=== PATIENT | female | born 1935 | race Caucasian/White ===

== ENCOUNTER 2017-07-21 08:22 | Day surgery (SDC) | payer MEDICARE ==
[~2017-07-21] VITALS: Ht 157.5 cm; Wt 72.6 kg
[~2017-07-21 08:22] MED LIST: ACET500 PO; ASCO500 PO; ASPI81EC PO; ATOR80 PO; CALCAVITDA PO; GLIM2 PO; HYDCHL25 PO; IBUPROFEN 200MG; LISINOPRIL PO; METF500C PO; METO50 PO; MULVITMIND PO; NAPR500 PO; PIOG45 PO
[2017-07-21] MEDS ORDERED: BUME1 (09:34)
[2017-07-21] MEDS ORDERED: [UNRECOGNIZED DRUG - OTHER] (09:35)
[2017-07-21] MEDS ORDERED: Excedrin Extra1 EACH (09:38)
[2017-07-21] MEDS ORDERED: LOPE2C (09:38)
[2017-07-21] MEDS ORDERED: METO50 PO (15:17)
[2017-07-21] MEDS ORDERED: Lisinopril2.5 MG PO (15:18)
[2017-07-21] MEDS ORDERED: BUME1 PO (15:19)
[2017-07-21] MEDS ORDERED: Micro-K10 MEQ PO (15:21)
[2017-07-21] MEDS ORDERED: GLIM2 PO (15:22)
[2017-07-21] MEDS ORDERED: METF500 PO (15:22)
[2017-07-21] MEDS ORDERED: ATOR80 PO (15:22)
[2017-07-21] MEDS ORDERED: Hair, Skin & N1 EACH PO (15:23)
[2017-07-21] MEDS ORDERED: ASCO500 PO (15:23)
[2017-07-21] MEDS ORDERED: ERGO400 PO (15:23)
[2017-07-21] MEDS ORDERED: BIOTENE PBF473 ML MM (15:24)
[2017-07-21] MEDS ORDERED: GENTEAL TEARS 015 M1 BOTHEYES (15:25)
[2017-07-21] MEDS ORDERED: LOPE2C PO (15:25)
[2017-07-21] MEDS ORDERED: Excedrin Extra1 EACH PO (15:26)
[2017-07-21] MEDS ORDERED: MAGOXI400 PO (15:26)
== END 2017-07-21 10:52 | disposition home or self-care (01) ==
LOC: ORSCSDS 08:22
PROVIDERS: Surgery
PROC: 0DBN8ZX Excision of Sigmoid Colon, Via Natural or Artificial Opening Endoscopic, Diagnostic (ICD-10-PCS; principal; 2017-07-21 09:30)
PROC: 3E0H8GC Introduction of Other Therapeutic Substance into Lower GI, Via Natural or Artificial Opening Endoscopic (ICD-10-PCS; principal; 2017-07-21 09:30)
DX: Z86.010 Personal history of colon polyps (principal); D12.5 Benign neoplasm of sigmoid colon; K57.30 Diverticulosis of large intestine without perforation or abscess without bleeding; E11.69 Type 2 diabetes mellitus with other specified complication; G47.33 Obstructive sleep apnea (adult) (pediatric); N18.9 Chronic kidney disease, unspecified; I10 Essential (primary) hypertension; E78.5 Hyperlipidemia, unspecified; E78.00 Pure hypercholesterolemia, unspecified; Z79.899 Other long term (current) drug therapy
CPT/HCPCS: 82947; 88305; 93005; 93010; J7120

== ENCOUNTER 2017-07-21 13:20 | Inpatient (IN) | payer MEDICARE ==
[~2017-07-21] VITALS: Ht 154.9 cm; Wt 71.7 kg
[~2017-07-21 13:20] MED LIST changes: +BUME1; +Excedrin Extra1 EACH; +LOPE2C; +[UNRECOGNIZED DRUG - OTHER]
[2017-07-21] MEDS ORDERED: METO50 PO (15:17)
[2017-07-21] MEDS ORDERED: Lisinopril2.5 MG PO (15:18)
[2017-07-21] MEDS ORDERED: BUME1 PO (15:19)
[2017-07-21] MEDS ORDERED: Micro-K10 MEQ PO (15:21)
[2017-07-21] MEDS ORDERED: ATOR80 PO (15:22)
[2017-07-21] MEDS ORDERED: GLIM2 PO (15:22)
[2017-07-21] MEDS ORDERED: METF500 PO (15:22)
[2017-07-21] MEDS ORDERED: ASCO500 PO (15:23)
[2017-07-21] MEDS ORDERED: ERGO400 PO (15:23)
[2017-07-21] MEDS ORDERED: Hair, Skin & N1 EACH PO (15:23)
[2017-07-21] MEDS ORDERED: BIOTENE PBF473 ML MM (15:24)
[2017-07-21] MEDS ORDERED: LOPE2C PO (15:25)
[2017-07-21] MEDS ORDERED: GENTEAL TEARS 015 M1 BOTHEYES (15:25)
[2017-07-21] MEDS ORDERED: MAGOXI400 PO (15:26)
[2017-07-21] MEDS ORDERED: Excedrin Extra1 EACH PO (15:26)
[2017-07-22 14:40] LABS: Hematocrit 39.9 % (33.0-51.0); Hemoglobin 13.2 g/dL (11.5-16.0); Mean Corpuscular HGB 29.3 pg (26.0-34.0); Mean Corpuscular HGB Conc 33.1 g/dL (31.5-36.5); Mean Corpuscular Volume 89 fL (80-100); Mean Platelet Volume 10.1 fL (9.1-12.4); Platelet Count 215 K/mm3 (150-400); RDW Coefficient Variation 14.5 % (11.7-14.2); White Blood Cell Count 9.86 K/mm3 (4.00-11.30)
[2017-07-23 03:28] LABS: Hematocrit 32.1 % (33.0-51.0); Hemoglobin 10.3 g/dL (11.5-16.0); Mean Corpuscular HGB 29.1 pg (26.0-34.0); Mean Corpuscular HGB Conc 32.1 g/dL (31.5-36.5); Mean Corpuscular Volume 91 fL (80-100); Mean Platelet Volume 9.5 fL (9.1-12.4); Platelet Count 185 K/mm3 (150-400); RDW Coefficient Variation 14.3 % (11.7-14.2); RDW Standard Deviation 47.5 fL (35.1-46.3); Red Blood Cell Count 3.54 M/mm3 (3.80-5.20); White Blood Cell Count 11.58 K/mm3 (4.00-11.30)
[2017-07-23 03:46] LABS: Creatinine, Blood 1.19 mg/dL (0.40-1.00)
[2017-07-23 03:48] LABS: BAND PERCENT MAN 38 % (0-8); BASOPHILS PERCENT MAN 0 % (0-2); EOSINOPHILS PERCENT MAN 0 % (0-6); LYMPHOCYTES ABSOLUTE MAN 0.46 K/mm3 (0.84-5.20); LYMPHOCYTES PERCENT MAN 4 % (21-46); METAMYELOCYTE ABSOLUTE MAN 0.34 K/mm3 (0.00-0.00); METAMYELOCYTE PERCENT MAN 3 % (0-0); MONOCYTES ABSOLUTE MAN 0.57 K/mm3 (0.16-1.47); MONOCYTES PERCENT MAN 5 % (4-13); NEUTROPHILS ABSOLUTE MAN 10.19 K/mm3 (1.96-9.15); SEG NEUTROPHILS PERCENT MAN 50 % (41-73); TOTAL CELLS COUNTED 100
[2017-07-24 04:57] LABS: BASOPHILS ABSOLUTE AUTO 0.02 K/mm3 (0.00-0.23); BASOPHILS PERCENT AUTO 0 % (0-2); EOSINOPHILS ABSOLUTE AUTO 0.06 K/mm3 (0.00-0.68); EOSINOPHILS PERCENT AUTO 1 % (0-6); Hematocrit 24.3 % (33.0-51.0); Hemoglobin 7.7 g/dL (11.5-16.0); IMMATURE GRAN ABSOLUTE AUTO 0.05 K/mm3 (0.00-0.10); IMMATURE GRAN PERCENT AUTO 1 % (0-1); LYMPHOCYTES ABSOLUTE AUTO 1.05 K/mm3 (0.84-5.20); LYMPHOCYTES PERCENT AUTO 10 % (21-46); MONOCYTES PERCENT AUTO 8 % (4-13); Mean Corpuscular HGB 29.3 pg (26.0-34.0); Mean Corpuscular HGB Conc 31.7 g/dL (31.5-36.5); Mean Corpuscular Volume 92 fL (80-100); Mean Platelet Volume 10.1 fL (9.1-12.4); NEUTROPHILS PERCENT AUTO 81 % (41-73); Platelet Count 165 K/mm3 (150-400); RDW Coefficient Variation 14.9 % (11.7-14.2); RDW Standard Deviation 50.4 fL (35.1-46.3); Red Blood Cell Count 2.63 M/mm3 (3.80-5.20); White Blood Cell Count 10.28 K/mm3 (4.00-11.30)
[2017-07-24 05:12] LABS: Bun/Creatinine Ratio 14.5 (12.0-20.0); Calcium, Blood 7.7 mg/dL (8.5-10.1); Creatinine, Blood 2.21 mg/dL (0.40-1.00); Potassium, Blood 3.7 mmol/L (3.5-5.5)
[2017-07-25 04:19] LABS: BASOPHILS ABSOLUTE AUTO 0.03 K/mm3 (0.00-0.23); BASOPHILS PERCENT AUTO 0 % (0-2); EOSINOPHILS ABSOLUTE AUTO 0.32 K/mm3 (0.00-0.68); EOSINOPHILS PERCENT AUTO 3 % (0-6); Hemoglobin 7.3 g/dL (11.5-16.0); IMMATURE GRAN ABSOLUTE AUTO 0.06 K/mm3 (0.00-0.10); IMMATURE GRAN PERCENT AUTO 1 % (0-1); LYMPHOCYTES ABSOLUTE AUTO 0.82 K/mm3 (0.84-5.20); LYMPHOCYTES PERCENT AUTO 8 % (21-46); MONOCYTES ABSOLUTE AUTO 0.58 K/mm3 (0.16-1.47); MONOCYTES PERCENT AUTO 6 % (4-13); Mean Corpuscular HGB 29.3 pg (26.0-34.0); Mean Corpuscular HGB Conc 31.7 g/dL (31.5-36.5); Mean Corpuscular Volume 92 fL (80-100); Mean Platelet Volume 10.1 fL (9.1-12.4); NEUTROPHILS ABSOLUTE AUTO 8.17 K/mm3 (1.96-9.15); NEUTROPHILS PERCENT AUTO 82 % (41-73); Platelet Count 170 K/mm3 (150-400); RDW Coefficient Variation 14.8 % (11.7-14.2); RDW Standard Deviation 50.1 fL (35.1-46.3); Red Blood Cell Count 2.49 M/mm3 (3.80-5.20); White Blood Cell Count 9.98 K/mm3 (4.00-11.30)
[2017-07-25 04:52] LABS: Bun/Creatinine Ratio 13.9 (12.0-20.0); Calcium, Blood 7.8 mg/dL (8.5-10.1); Creatinine, Blood 2.16 mg/dL (0.40-1.00); Potassium, Blood 4.1 mmol/L (3.5-5.5)
[2017-07-26 09:27] LABS: BASOPHILS ABSOLUTE AUTO 0.05 K/mm3 (0.00-0.23); BASOPHILS PERCENT AUTO 1 % (0-2); EOSINOPHILS ABSOLUTE AUTO 0.33 K/mm3 (0.00-0.68); EOSINOPHILS PERCENT AUTO 3 % (0-6); Hematocrit 25.6 % (33.0-51.0); Hemoglobin 8.3 g/dL (11.5-16.0); IMMATURE GRAN ABSOLUTE AUTO 0.05 K/mm3 (0.00-0.10); IMMATURE GRAN PERCENT AUTO 1 % (0-1); LYMPHOCYTES ABSOLUTE AUTO 0.84 K/mm3 (0.84-5.20); LYMPHOCYTES PERCENT AUTO 9 % (21-46); MONOCYTES ABSOLUTE AUTO 0.67 K/mm3 (0.16-1.47); MONOCYTES PERCENT AUTO 7 % (4-13); Mean Corpuscular HGB 29.4 pg (26.0-34.0); Mean Corpuscular HGB Conc 32.4 g/dL (31.5-36.5); Mean Corpuscular Volume 91 fL (80-100); Mean Platelet Volume 9.7 fL (9.1-12.4); NEUTROPHILS ABSOLUTE AUTO 7.77 K/mm3 (1.96-9.15); NEUTROPHILS PERCENT AUTO 80 % (41-73); Platelet Count 235 K/mm3 (150-400); RDW Coefficient Variation 14.2 % (11.7-14.2); RDW Standard Deviation 47.4 fL (35.1-46.3); Red Blood Cell Count 2.82 M/mm3 (3.80-5.20); White Blood Cell Count 9.71 K/mm3 (4.00-11.30)
[2017-07-26 09:42] LABS: Bun/Creatinine Ratio 17.9 (12.0-20.0); Calcium, Blood 8.6 mg/dL (8.5-10.1); Creatinine, Blood 1.56 mg/dL (0.40-1.00); Potassium, Blood 3.7 mmol/L (3.5-5.5)
[2017-07-27 06:01] LABS: BASOPHILS ABSOLUTE AUTO 0.06 K/mm3 (0.00-0.23); BASOPHILS PERCENT AUTO 1 % (0-2); EOSINOPHILS ABSOLUTE AUTO 0.43 K/mm3 (0.00-0.68); EOSINOPHILS PERCENT AUTO 5 % (0-6); Hematocrit 24.8 % (33.0-51.0); Hemoglobin 8.2 g/dL (11.5-16.0); IMMATURE GRAN ABSOLUTE AUTO 0.05 K/mm3 (0.00-0.10); IMMATURE GRAN PERCENT AUTO 1 % (0-1); LYMPHOCYTES PERCENT AUTO 11 % (21-46); MONOCYTES ABSOLUTE AUTO 0.91 K/mm3 (0.16-1.47); MONOCYTES PERCENT AUTO 10 % (4-13); Mean Corpuscular HGB 29.5 pg (26.0-34.0); Mean Corpuscular HGB Conc 33.1 g/dL (31.5-36.5); Mean Corpuscular Volume 89 fL (80-100); Mean Platelet Volume 9.6 fL (9.1-12.4); NEUTROPHILS ABSOLUTE AUTO 6.32 K/mm3 (1.96-9.15); NEUTROPHILS PERCENT AUTO 72 % (41-73); Platelet Count 234 K/mm3 (150-400); RDW Coefficient Variation 14.2 % (11.7-14.2); RDW Standard Deviation 46.5 fL (35.1-46.3); Red Blood Cell Count 2.78 M/mm3 (3.80-5.20); White Blood Cell Count 8.77 K/mm3 (4.00-11.30)
[2017-07-27 06:18] LABS: Bun/Creatinine Ratio 18.6 (12.0-20.0); Calcium, Blood 8.5 mg/dL (8.5-10.1); Creatinine, Blood 1.4 mg/dL (0.40-1.00); Potassium, Blood 3.7 mmol/L (3.5-5.5)
[2017-07-28] MEDS ORDERED: HYDR1TAB94 PO ×2 (11:49→11:54)
== END 2017-07-28 13:18 | disposition home or self-care (01) | DRG 331 ==
LOC: PRE IP 07-22 07:30 → SURS 07-22 12:51
PROVIDERS: Anesthesiology; Surgery
PROC: 0DTF4ZZ Resection of Right Large Intestine, Percutaneous Endoscopic Approach (ICD-10-PCS; principal; 2017-07-22 14:30)
DX: K63.89 Other specified diseases of intestine (principal); E11.22 Type 2 diabetes mellitus with diabetic chronic kidney disease; E11.42 Type 2 diabetes mellitus with diabetic polyneuropathy; G47.33 Obstructive sleep apnea (adult) (pediatric); E11.59 Type 2 diabetes mellitus with other circulatory complications; I12.9 Hypertensive chronic kidney disease with stage 1 through stage 4 chronic kidney disease, or unspecified chronic kidney disease; N18.3 Chronic kidney disease, stage 3 (moderate); G43.909 Migraine, unspecified, not intractable, without status migrainosus; E66.9 Obesity, unspecified; E78.5 Hyperlipidemia, unspecified; Z68.28 Body mass index [BMI] 28.0-28.9, adult; Z86.010 Personal history of colon polyps; Z85.3 Personal history of malignant neoplasm of breast; Z88.8 Allergy status to other drugs, medicaments and biological substances; Z79.84 Long term (current) use of oral hypoglycemic drugs; Z79.899 Other long term (current) drug therapy; Z90.5 Acquired absence of kidney
CPT/HCPCS: 36415; 80048; 82947; 85025; 85027; 88305; 88309; 93005; 93010; 94762; J0295; J1100; J1650; J1885; J2250; J2405; J3010; J7030; J7120

== ENCOUNTER 2017-08-24 06:00 | Day surgery (SDC) | payer MEDICARE ==
[~2017-08-24] VITALS: Ht 157.5 cm; Wt 70.8 kg
[~2017-08-24 06:00] MED LIST changes: +BIOTENE PBF473 ML MM; +BUME1 PO; +ERGO400 PO; +Excedrin Extra1 EACH PO; +GENTEAL TEARS 015 M1 BOTHEYES; +HYDR1TAB94 PO; +Hair, Skin & N1 EACH PO; +LOPE2C PO; +Lisinopril2.5 MG PO; +MAGOXI400 PO; +METF500 PO; +Micro-K10 MEQ PO
== END 2017-08-24 23:07 | disposition home or self-care (01) ==
LOC: ORSCMMR 06:00 → ORD 07:30 → ORSCMMR 23:07
PROVIDERS: Surgery
PROC: 0JH60WZ Insertion of Totally Implantable Vascular Access Device into Chest Subcutaneous Tissue and Fascia, Open Approach (ICD-10-PCS; principal; 2017-08-24 07:30)
DX: C18.4 Malignant neoplasm of transverse colon (principal); E11.9 Type 2 diabetes mellitus without complications; G47.33 Obstructive sleep apnea (adult) (pediatric); I10 Essential (primary) hypertension; E78.5 Hyperlipidemia, unspecified; E78.00 Pure hypercholesterolemia, unspecified; Z79.84 Long term (current) use of oral hypoglycemic drugs; Z79.899 Other long term (current) drug therapy
CPT/HCPCS: 77001; 82947; C1788; J0690; J1642; J2250; J3010; J7120

== ENCOUNTER 2018-09-24 09:48 | Day surgery (SDC) | payer MEDICARE ==
[~2018-09-24] VITALS: Ht 157.5 cm; Wt 68.3 kg
[~2018-09-24 09:48] MED LIST changes: +INSDET100 SC; +Prinivil10 MG PO; +TRULICITY1.5 MG/0.5 SC; +VITAMIN D31000 UNIT PO
== END 2018-09-24 11:48 | disposition home or self-care (01) ==
LOC: ORSCSDS 09:48
PROVIDERS: Surgery
PROC: 0DBL8ZX Excision of Transverse Colon, Via Natural or Artificial Opening Endoscopic, Diagnostic (ICD-10-PCS; principal; 2018-09-24 11:00)
PROC: 0DBE8ZX Excision of Large Intestine, Via Natural or Artificial Opening Endoscopic, Diagnostic (ICD-10-PCS; principal; 2018-09-24 11:00)
DX: Z85.038 Personal history of other malignant neoplasm of large intestine (principal); D12.3 Benign neoplasm of transverse colon; K57.30 Diverticulosis of large intestine without perforation or abscess without bleeding; E11.9 Type 2 diabetes mellitus without complications; G47.33 Obstructive sleep apnea (adult) (pediatric); Z79.899 Other long term (current) drug therapy
CPT/HCPCS: 82947; 88305; J2704; J7120

== ENCOUNTER → 2019-04-06 | Outpatient (CLI) | payer MEDICARE | END | disposition home or self-care (01) | LOC: LAB SHORT 12:02 → PLD 12:02 | DX: C44.629 Squamous cell carcinoma of skin of left upper limb, including shoulder (principal) | CPT/HCPCS: 88305 ==

== ENCOUNTER 2020-08-06 09:17 | Day surgery (SDC) | payer MEDICARE ==
[~2020-08-06] VITALS: Ht 154.9 cm; Wt 65.1 kg
[~2020-08-06 09:17] MED LIST changes: +ELIQUIS2.5 MG PO; +GABA100 PO; -INSDET100 SC; +LEVEMIR100 UNIT/1 SC; +MASOPHEN325 MG PO; +METO25 PO; +Norco 5-325 Ta1 EACH PO; +PROBIOTIC1 EA13 PO; +TYLENOL PM PO
[2020-08-06] MEDS ORDERED: ASCO500 PO (09:45)
[2020-08-06] MEDS ORDERED: THERA-D2000 UNIT PO (09:46)
[2020-08-06] MEDS ORDERED: MAGNESIUM OXID500 MG (09:46)
--- NOTE | 2020-08-06 15:58 | NUR ---
SHIFT SUMMARY PT A&OX4, VSS, S/P R ISMAEL, AQUACEL CDI, POLAR ROBERTO ON, SCDS/TEDS ON, WIGGLES TOES/MOVES FEET, DENIES N&T. DENIES PAIN. DENIES N&V, TJ PO. AT BEDSIDE. WILL REPORT TO ONCOMING NOC RN.
--- NOTE | 2020-08-07 03:56 | NUR ---
SHIFT SUMMARY POD1 R ISMAEL. AOX4. VSS. CBG AT 191 LAST NIGHT. R HIP WITH AQUACEL DRESSING, CDI. PAIN LEVEL FROM 2-5/10. PAIN MANAGED WITH TORADOL, TYLENOL AND OXY. TOLERATING AMBULATION WITH FWW AND GB. WB TJ ON R LEG. WALKED IN THE HALLWAY X1 LAST NIGHT. TOLERATING PO INTAKE/ ADA DIET. DENIES N/V. VOIDING ADEQUATELY DENIES DIFFICULTY/ISSUES. CALL LIGHT WITHIN REACH. WILL PROVIDE REOPRT TO UPCOMING AM NURSE.
[2020-08-07 04:55] LABS: BASOPHILS ABSOLUTE AUTO 0.04 K/mm3 (0.00-0.23); BASOPHILS PERCENT AUTO 0 % (0-2); EOSINOPHILS ABSOLUTE AUTO 0.17 K/mm3 (0.00-0.68); EOSINOPHILS PERCENT AUTO 2 % (0-6); Hematocrit 33.7 % (33.0-51.0); IMMATURE GRAN ABSOLUTE AUTO 0.04 K/mm3 (0.00-0.10); IMMATURE GRAN PERCENT AUTO 0 % (0-1); LYMPHOCYTES ABSOLUTE AUTO 0.67 K/mm3 (0.84-5.20); LYMPHOCYTES PERCENT AUTO 7 % (21-46); MONOCYTES ABSOLUTE AUTO 0.84 K/mm3 (0.16-1.47); MONOCYTES PERCENT AUTO 9 % (4-13); Mean Corpuscular HGB 32.4 pg (26.0-34.0); Mean Corpuscular HGB Conc 32.6 g/dL (31.5-36.5); Mean Corpuscular Volume 99 fL (80-100); Mean Platelet Volume 9.9 fL (9.1-12.4); NEUTROPHILS ABSOLUTE AUTO 7.32 K/mm3 (1.96-9.15); NEUTROPHILS PERCENT AUTO 81 % (41-73); Platelet Count 166 K/mm3 (150-400); RDW Coefficient Variation 13.7 % (11.7-14.2); RDW Standard Deviation 49.8 fL (35.1-46.3); Red Blood Cell Count 3.39 M/mm3 (3.80-5.20); White Blood Cell Count 9.08 K/mm3 (4.00-11.30)
[2020-08-07 05:16] LABS: Bun/Creatinine Ratio 28.7 (12.0-20.0); Calcium, Blood 8.4 mg/dL (8.5-10.1); Creatinine, Blood 1.57 mg/dL (0.40-1.00); Magnesium, Blood 2.1 mg/dL (1.6-2.4); Potassium, Blood 5.3 mmol/L (3.5-5.5)
[2020-08-07] MEDS ORDERED: ACET500 PO (09:30)
[2020-08-07] MEDS ORDERED: Acetaminophen500 MG PO (09:30)
[2020-08-07] MEDS ORDERED: ROXICODONE5 MG PO (09:31)
--- NOTE | 2020-08-07 11:49 | NUR ---
PATIENT D/C'D HOME WITH SPOUSE AT THIS TIME; BOTH STATE UNDERSTANDING OF MEDS, ACTIVITY, WOUND CARE, F/U APPT, OP PT, ETC. PATIENT STATES PAIN TOLERABLE. NO ACUTE CHANGES OR C/O.
--- NOTE | 2020-08-07 11:52 | NUR ---
SHIFT SUMMARY PT POD#1 FOR R HIP. POLAR PACK IN PLACE; AQUACEL DRESSING C/D/I. MEDICATED FOR PAIN X1 THIS SHIFT. WORKED WITH P/T AND O/T. DENIES AND FLATUS OR BM. VSS; DISCHARGED HOME WITH HER .
--- NOTE | 2020-08-07 16:44 | NUR ---
08/07/20 1644 Michelle Craven VERIFICATIONS: EDIT CHART.
== END 2020-08-07 11:50 | disposition home or self-care (01) ==
LOC: ORSCMMR 09:17 → ORD 10:45 → SURS 14:06 → ORSCMMR 08-07 11:50
PROVIDERS: Orthopaedic Surgery
PROC: 0SR90JA Replacement of Right Hip Joint with Synthetic Substitute, Uncemented, Open Approach (ICD-10-PCS; principal; 2020-08-06 10:45)
DX: M16.11 Unilateral primary osteoarthritis, right hip (principal); I10 Essential (primary) hypertension; I48.91 Unspecified atrial fibrillation; Z79.01 Long term (current) use of anticoagulants; G47.33 Obstructive sleep apnea (adult) (pediatric); E78.5 Hyperlipidemia, unspecified; N18.9 Chronic kidney disease, unspecified; Z79.899 Other long term (current) drug therapy
CPT/HCPCS: 36415; 72170; 80048; 82947; 83735; 85025; 97110; 97116; 97161; 97530; A9270; C1776; J0171; J0690; J0735; J1815; J1885; J2250; J2405; J2704; J2795; J7120

== ENCOUNTER 2022-07-27 12:57 | Inpatient (IN) | payer MEDICARE ==
[~2022-07-27] VITALS: Ht 154.9 cm; Wt 55.1 kg
[~2022-07-27 12:57] MED LIST changes: +Acetaminophen500 MG PO; +MAGNESIUM OXID500 MG; +ROXICODONE5 MG PO; +THERA-D2000 UNIT PO
[2022-07-27 13:20] LABS: BASOPHILS ABSOLUTE AUTO 0.08 K/mm3 (0.00-0.23); BASOPHILS PERCENT AUTO 1 % (0-2); EOSINOPHILS ABSOLUTE AUTO 0.38 K/mm3 (0.00-0.68); EOSINOPHILS PERCENT AUTO 3 % (0-6); Hematocrit 36.2 % (33.0-51.0); Hemoglobin 11.1 g/dL (11.5-16.0); IMMATURE GRAN ABSOLUTE AUTO 0.05 K/mm3 (0.00-0.10); IMMATURE GRAN PERCENT AUTO 0 % (0-1); LYMPHOCYTES ABSOLUTE AUTO 1.04 K/mm3 (0.84-5.20); LYMPHOCYTES PERCENT AUTO 9 % (21-46); MONOCYTES ABSOLUTE AUTO 0.85 K/mm3 (0.16-1.47); MONOCYTES PERCENT AUTO 8 % (4-13); Mean Corpuscular HGB 29.8 pg (26.0-34.0); Mean Corpuscular HGB Conc 30.7 g/dL (31.5-36.5); Mean Corpuscular Volume 97 fL (80-100); Mean Platelet Volume 9.5 fL (9.1-12.4); NEUTROPHILS ABSOLUTE AUTO 8.92 K/mm3 (1.96-9.15); NEUTROPHILS PERCENT AUTO 79 % (41-73); Platelet Count 247 K/mm3 (150-400); RDW Coefficient Variation 14.5 % (11.7-14.2); RDW Standard Deviation 51.2 fL (35.1-46.3); Red Blood Cell Count 3.73 M/mm3 (3.80-5.20); White Blood Cell Count 11.32 K/mm3 (4.00-11.30)
[2022-07-27 13:50] LABS: Albumin, Blood 3.6 g/dL (3.4-5.0); Albumin/Globulin Ratio 0.8 (0.8-1.8); Bilirubin, Total 0.6 mg/dL (0.1-1.0); Bun/Creatinine Ratio 30.6 (12.0-20.0); Calcium, Blood 10.1 mg/dL (8.5-10.1); Creatinine, Blood 1.24 mg/dL (0.40-1.00); Globulin, Blood 4.5 g/dL (2.2-4.0); Potassium, Blood 6.6 mmol/L (3.5-5.5); Total Protein, Blood 8.1 g/dL (6.4-8.2)
[2022-07-27 15:49] LABS: Source, Urine Clean Catch
[2022-07-27 15:55] LABS: Appearance, Urine Clear (Clear); Bilirubin, Urine Neg (Neg); Blood, Urine Neg (Neg); Color, Urine Yellow (P-Yellow); Glucose Qualitative, Urine Neg (Neg); Ketones, Urine Neg (Neg); Leukocyte Esterase, Urine Neg (Neg); Nitrite, Urine Neg (Neg); Protein, Urine Neg (Neg); Urobilinogen, Urine NORM (Normal)
[2022-07-27 16:05] LABS: Calcium, Ionized (POC) 1.31 mmol/L (1.10-1.46); Chloride (POC) 106 mmol/L (98-108); Creatinine (POC) 1.3 mg/dL (0.6-1.0); Glucose (ISTAT POC) 273 mg/dL (70-99); Hemoglobin (POC) 10.5 g/dL (12.0-16.0); Potassium (POC) 4.3 mmol/L (3.5-5.5); Sodium (POC) 140 mmol/L (135-148); Total CO2 (POC) 21 mmol/L (21-32)
[2022-07-27 17:51] LABS: Bun/Creatinine Ratio 29.8 (12.0-20.0); Calcium, Blood 9.8 mg/dL (8.5-10.1); Creatinine, Blood 1.21 mg/dL (0.40-1.00)
[2022-07-27 17:52] LABS: Potassium, Blood 4.5 mmol/L (3.5-5.5)
[2022-07-27] MEDS ORDERED: METO25 PO (21:10)
[2022-07-28 05:02] LABS: BASOPHILS ABSOLUTE AUTO 0.07 K/mm3 (0.00-0.23); BASOPHILS PERCENT AUTO 1 % (0-2); EOSINOPHILS ABSOLUTE AUTO 0.08 K/mm3 (0.00-0.68); EOSINOPHILS PERCENT AUTO 1 % (0-6); Hematocrit 24.9 % (33.0-51.0); Hemoglobin 7.8 g/dL (11.5-16.0); IMMATURE GRAN ABSOLUTE AUTO 0.03 K/mm3 (0.00-0.10); IMMATURE GRAN PERCENT AUTO 0 % (0-1); LYMPHOCYTES ABSOLUTE AUTO 1.11 K/mm3 (0.84-5.20); LYMPHOCYTES PERCENT AUTO 11 % (21-46); MONOCYTES PERCENT AUTO 12 % (4-13); Mean Corpuscular HGB 29.5 pg (26.0-34.0); Mean Corpuscular HGB Conc 31.3 g/dL (31.5-36.5); Mean Corpuscular Volume 94 fL (80-100); Mean Platelet Volume 9.9 fL (9.1-12.4); NEUTROPHILS ABSOLUTE AUTO 7.89 K/mm3 (1.96-9.15); NEUTROPHILS PERCENT AUTO 76 % (41-73); Platelet Count 202 K/mm3 (150-400); RDW Coefficient Variation 14.6 % (11.7-14.2); RDW Standard Deviation 50.1 fL (35.1-46.3); Red Blood Cell Count 2.64 M/mm3 (3.80-5.20); White Blood Cell Count 10.38 K/mm3 (4.00-11.30)
[2022-07-28 05:37] LABS: Bun/Creatinine Ratio 28.6 (12.0-20.0); Calcium, Blood 8.6 mg/dL (8.5-10.1); Creatinine, Blood 1.47 mg/dL (0.40-1.00); Potassium, Blood 4.6 mmol/L (3.5-5.5)
--- NOTE | 2022-07-28 06:31 | NUR ---
SUMMARY: PATIENT BP LOW AT BEGINING OF SHIFT. MD NOTIFIED. 1L BOLUS OF LR GIVEN. PLACED PATIENT ON NS @100 mL/HR. BP IMPROVED AFTER BOLUS. PATIENT WORE CPAP OVERNIGHT. TELEMETRY IN PLACE PATIENT A FIB, CONVERTED TO SINUS RHYTHM THIS MORNING. PATIENT OUT OF BED TO COMMODE WITH 1X ASSIST. LAC TO BACK OF HEAD WITH STABLES HAS SCANT BLEEDING. PATIENT DID REPORT WHILE SHE WAS IN A FIB SHE GOT LIGHT HEADED AND DIZZY WITH TURNS BUT WAS FINE GETTING OUT OF BED THIS AM. CALL LIGHT IN REACH BED ALARM ON.
--- NOTE | 2022-07-28 08:00 | NUR ---
pt sitting up in a chair for breakfast, a/ox3 pleasant and coopeative with care, follows commands well, denies pain, states she's feeling better, lungs are clear t/o, on r/a, resp even and unlabored, no cough noted, hrr, tele in place running sr per monitor, see strip, no edema noted, ppp+2, cap refill <3sec vs stable, afebrile, iv site to rfa site is clear and patent, btx4, abd flat soft nontender, voids via bsc, skin has lac to back of head, with kassandra, otherwise c/w/d, erica, one person assist, tomasa, call light in reach.
[2022-07-28 08:15] LABS: Percent Saturation 5.2 % (15.0-50.0)
[2022-07-28 12:06] LABS: Hematocrit 27.7 % (33.0-51.0); Hemoglobin 8.6 g/dL (11.5-16.0)
[2022-07-28 14:41] LABS: Stool Occult Blood Guaiac 1 Pos (Neg)
--- NOTE | 2022-07-28 17:32 | NUR ---
pt has been doing well today, b/ps have been soft fluids were stopped and clarified with Dr. Rivera, started her on iron, no further changes this shift, has been getting herself to bsc, just needs help with lines, call light in reach.
[2022-07-29 01:05] LABS: BASOPHILS ABSOLUTE AUTO 0.05 K/mm3 (0.00-0.23); BASOPHILS PERCENT AUTO 1 % (0-2); EOSINOPHILS ABSOLUTE AUTO 0.28 K/mm3 (0.00-0.68); EOSINOPHILS PERCENT AUTO 3 % (0-6); Hematocrit 23.8 % (33.0-51.0); Hemoglobin 7.7 g/dL (11.5-16.0); IMMATURE GRAN ABSOLUTE AUTO 0.04 K/mm3 (0.00-0.10); IMMATURE GRAN PERCENT AUTO 0 % (0-1); LYMPHOCYTES ABSOLUTE AUTO 1.06 K/mm3 (0.84-5.20); LYMPHOCYTES PERCENT AUTO 11 % (21-46); MONOCYTES ABSOLUTE AUTO 0.93 K/mm3 (0.16-1.47); MONOCYTES PERCENT AUTO 9 % (4-13); Mean Corpuscular HGB 30.2 pg (26.0-34.0); Mean Corpuscular HGB Conc 32.4 g/dL (31.5-36.5); Mean Corpuscular Volume 93 fL (80-100); NEUTROPHILS ABSOLUTE AUTO 7.72 K/mm3 (1.96-9.15); NEUTROPHILS PERCENT AUTO 77 % (41-73); Platelet Count 184 K/mm3 (150-400); RDW Coefficient Variation 14.8 % (11.7-14.2); RDW Standard Deviation 50.8 fL (35.1-46.3); Red Blood Cell Count 2.55 M/mm3 (3.80-5.20); White Blood Cell Count 10.08 K/mm3 (4.00-11.30)
[2022-07-29 01:30] LABS: Albumin, Blood 2.8 g/dL (3.4-5.0); Anion Gap 6 mmol/L (6-16); Blood Urea Nitrogen 44 mg/dL (8-24); Bun/Creatinine Ratio 30.1 (12.0-20.0); CO2, Blood 22 mmol/L (21-32); Calcium, Blood 8.4 mg/dL (8.5-10.1); Chloride, Blood 110 mmol/L (98-108); Creatinine, Blood 1.46 mg/dL (0.40-1.00); Glomerular Filtration Rate 35 (60-); Glucose, Blood 140 mg/dL (70-99); Phosphorus, Blood 3.3 mg/dL (2.5-4.9); Potassium, Blood 4.6 mmol/L (3.5-5.5); Sodium, Blood 138 mmol/L (136-145)
--- NOTE | 2022-07-29 04:45 | NUR ---
Summary: Overnight patient had an episode of light headed and dizziness while getting up to commode. Patient was also converting in and out of a fib and SR. Notified MD recieved order for EKG that read a fib with rate in the 60s. Placed patient on 1L NC as she was SOB and didn't want to wear her CPAP while sleeping. Dr. France came up and assessed patient. Requested morning labs drawn early per MD. HGB has been trending down. Patient also had a positive guiac stool test yesterday. Currently in bed resting, VSS, call light in reach.
[2022-07-29 10:04] LABS: Hematocrit 27.9 % (33.0-51.0); Hemoglobin 8.7 g/dL (11.5-16.0)
--- NOTE | 2022-07-29 19:21 | NUR ---
SHIFT SUMMARY PT UP TO BEDSIDE COMMODE OR BATHROOM TODAY. STATED THIS MORNING SHE FELT VERY UNWELL AND DIDN'T FEEL UP TO DISCHARGING TODAY. EXPRESSING CONCERN ABOUT FALLING AGAIN AND OVERWHELMED WITH REQUIREMENTS SHE HAD AT HOME. THIS AFTERNOON SHE FELT MUCH BETTER AND STATED SHE WAS HAPPY TO FELL STRONGER AND LESS EMOTIONAL. FRIENDLY AND CHATTY MOST OF THE DAY.
--- NOTE | 2022-07-30 04:16 | NUR ---
SHIFT SUMMARY PATIENT HAD NO ACUTE CHANGES. AXOX 4 AND ONE ASSIST BACK INTO BED FROM CHAIR/BSC. PIV REMAINS INTACT. HOOP ROLLS OPERATOR REPORTS AFIB 68 W/BBB. CBG 189. USES 2L O2 NC AT NIGHT STATING 96% ON CONTINUOUS PULSE OXIMETRY. REPORTED BACK OF HEAD PAIN AT BRETT SITE. TYLENOL 650 MG GIVEN PER EMAR. DENIES CHEST PAIN, AND N/V. SOB W/EXERTION. VSS/AFEBRILE. COOPERATIVE WITH CARE. CALL LIGHT IN REACH. BED IN LOWEST POSITION. WILL CONTINUE TO MONITOR UNTIL DAY SHIFT NURSE ASSUMES CARE.
[2022-07-30 05:21] LABS: Hemoglobin 7.6 g/dL (11.5-16.0)
[2022-07-30 05:37] LABS: Albumin, Blood 2.7 g/dL (3.4-5.0); Anion Gap 3 mmol/L (6-16); Blood Urea Nitrogen 40 mg/dL (8-24); Bun/Creatinine Ratio 33.9 (12.0-20.0); CO2, Blood 23 mmol/L (21-32); Calcium, Blood 8.3 mg/dL (8.5-10.1); Chloride, Blood 110 mmol/L (98-108); Creatinine, Blood 1.18 mg/dL (0.40-1.00); Glomerular Filtration Rate 45 (60-); Glucose, Blood 160 mg/dL (70-99); Phosphorus, Blood 2.9 mg/dL (2.5-4.9); Potassium, Blood 4.8 mmol/L (3.5-5.5); Sodium, Blood 136 mmol/L (136-145)
[2022-07-30 10:56] LABS: Hematocrit 28.5 % (33.0-51.0)
--- NOTE | 2022-07-30 18:22 | NUR ---
SHIFT SUMMARY PT NOT FEELING WELL AGAIN THIS MORNING AND VERY SHAKEY/UNSTEADY ON HER FEET. ENCOURAGED TO GET UP TO COMMODE AND HAS BEEN MOSTLY UPIN CHAIR REMAINDER OF DAY. HAD AN EPISODE OF UNUSUAL HEART RHYTHMS ON TELE THAT EKG AND CARDIOLOGY CONSULT WAS CALLED FOR. DR. AHN REPORTED HE FELT PT HAS BEEN IN ATRIAL TACHYCARDIA AND PT HAS BEEN SYMPTOMATIC. PLANS FOR PACEMAKER PLACEMENT TOMORROW.
--- NOTE | 2022-07-31 03:53 | NUR ---
SHIFT UNREMARKABLE. PT HAS BEEN NPO SINCE MIDNIGHT PENDING PACEMAKER PLACEMENT ON DAY SHIFT. HAS FELT FINE THIS SHIFT, ABLE TO SLEEP THROUGH MUCH OF SHIFT AFTER GETTING INTO BED AROUND 2300. SATTING >92% ON 2 L O2 VIA NC. A-FLUTTER PER REGISTER OF DEEDS REPORT. SHIFT OTHERWISE UNREMARKABLE. CALL LIGHT LEFT WITHIN REACH .
[2022-07-31 05:13] LABS: Hematocrit 25.2 % (33.0-51.0); Hemoglobin 7.8 g/dL (11.5-16.0)
[2022-07-31 05:38] LABS: Bun/Creatinine Ratio 31.4 (12.0-20.0); Calcium, Blood 8.7 mg/dL (8.5-10.1); Creatinine, Blood 1.37 mg/dL (0.40-1.00); Potassium, Blood 4.7 mmol/L (3.5-5.5)
--- NOTE | 2022-07-31 11:48 | NUR ---
PT P[facility]ED [facility] TO PACEMAKER PROCEDURE. BELONGINGS COLLECTED AND TAKEN TO [facility].
--- NOTE | 2022-07-31 12:07 | NUR ---
REPORT CALLED TO SUSANNE LORA IN PCU.
--- NOTE | 2022-07-31 17:59 | NUR ---
SHIFT SUMMARY PT ARRIVED TO U 05 @ APPROX 1345, POST PACER IMPLANTATION. PT A/O X4, PLEASANT AND COOPERATIVE WITH CARE. PT EXTREMELY TALKATIVE. PT PACER SITE IS ON THE LEFT UPPER CHEST. DRESSING IS C/D/I. NO DRAINAGE, REDNESS, OR EDEMA NOTED. PT REPORTED MILD TENDERNESS WITH SITE, BUT WAS EASILY MANAGED WITH PO TYLENOL. PT HOB ELEVATED AND ICE PACK IN PLACE. PT SHOWING AV PACED AT 60 ON TELE. PT ON RA AND SPO2 >92%. RECEIVED IN REPORT THAT PT HAS BEEN ON O2 AT NIGHT IN REPLACE OF HER HOME CPAP. PT APPEARED TO BE SLEEPING THIS AFTERNOON, RESPIRATIONS WERE EVEN AND UNLABORED. NO DISTRESS NOTED AND SPO2 WAS 100% ON RA. PT VERY COMMUNICATIVE OF HER NEEDS AND USES CALL LIGHT APPROPRIATELY. PT WAS UP TO THE CHAIR FOR DINNER AND TOLERATING WELL. PT HAS BEEN TRANSFERRING TO BSC WITH 1PA, ALSO TOLERATES WELL. THIS RN WILL CONTINUE TO CARE FOR PT AND REPORT TO ONCOMING RN.
[2022-08-01 04:05] LABS: Hematocrit 27.2 % (33.0-51.0); Hemoglobin 8.7 g/dL (11.5-16.0)
[2022-08-01 04:20] LABS: Anion Gap 6 mmol/L (6-16); Blood Urea Nitrogen 38 mg/dL (8-24); Bun/Creatinine Ratio 32.8 (12.0-20.0); CO2, Blood 21 mmol/L (21-32); Calcium, Blood 8.9 mg/dL (8.5-10.1); Chloride, Blood 110 mmol/L (98-108); Creatinine, Blood 1.16 mg/dL (0.40-1.00); Glomerular Filtration Rate 46 (60-); Glucose, Blood 127 mg/dL (70-99); Phosphorus, Blood 2.9 mg/dL (2.5-4.9); Potassium, Blood 4.6 mmol/L (3.5-5.5); Sodium, Blood 137 mmol/L (136-145)
--- NOTE | 2022-08-01 05:08 | NUR ---
Assumed care of pt at 1900. A/Ox4, cooperative with care and calls appropriately. C/o L shoulder incision pain and chronic back pain, medicated per emar with good relief. Maintains over 92% on RA, managed to wean off O2 even during sleep and patient maintained sats. LS clear t/o with JENKINS noted. Paced on tele at 60. Denies CP/pressure, VSS. Strong +2 pulses t/o b/l. 1+ pitting edema to BLE. Purewick in place per patient request and draining clear/straw urine. Pacer insertion in LCW with minimal serosanguineous drainage covering about 75% of bandage, no new drainage this shift. [place] in occipital area w/o new drainage. R side of neck ecchymosis, all from the fall at home. No acute conditions, will report to rosette LORA.
[2022-08-01] MEDS ORDERED: Acetaminophen650 M1 PO (10:13)
[2022-08-01] MEDS ORDERED: METO25 PO (10:14)
--- NOTE | 2022-08-01 16:32 | NUR ---
SHIFT SUMMARY/DISCHARGE PT D/C'D @ APPROX 1430. PT A/O X4. PLEASANT AND COOPERATIVE WITH CARE. PT ASYMPTOMATIC T/O SHIFT. PT WAS ON RA, SPO2 98-100%. SHE WORKED WITH PHYSICAL THERAPY AND TOLERATED AMBULATION WELL. PT SHOWED A PACED RHYTHM FROM 60-70 ON TELE. PACER INSERTION SITE WNL UPON D/C. MINIMAL SWELLING AT SITE. NO REDNESS NOTED. PT DENIED ANY TENDERNESS IN THE AREA. PT HAD 6 BRETT INTACT IN THE RIGHT OCCIPITAL AREA DUE TO FALL ENGLISH DRAWER. BRETT HEALING WNL. PT REPORTED MINIMAL TENDERNESS IN THE AREA AND STATED ONLY WITH PALPATION. PT WILL BE HAVING HOME HEALTH TO THE HOUSE AND THEY PLAN TO REMOVE BRETT. PT ALSO ENCOURAGED TO FOLLOW UP PCP WITHIN ONE WEEK. PCP WAS OUT OF THE OFFICE THIS WEEK AND APPT WAS UNABLE TO BE MADE. PT TO FOLLOW UP WITH CARDIOLOGY FOR PACER WOUND CHECK IN ONE WEEK AND THEN PACEMAKER FOLLOW UP IS SCHEDULED IN OCTOBER. PT PROVIDED WITH ALL DOCUMENTATION REGARDING APPT'S AND PACEMAKER DEVICE INFORMATION. PT TAKEN OUT OF ROOM IN BY TANVIR ARMENDARIZ. PT DAUGHTER PICKED PT UP.
== END 2022-08-01 16:29 | disposition home or self-care (01) | DRG 243 ==
LOC: ER 12:57 → MEDS 12:58 → PCU 07-31 11:45
PROVIDERS: Student in an Organized Health Care Education/Training Program; ADMIT Family Medicine
PROC: 0JH606Z Insertion of Pacemaker, Dual Chamber into Chest Subcutaneous Tissue and Fascia, Open Approach (ICD-10-PCS; principal; 2022-07-31)
PROC: 02H63JZ Insertion of Pacemaker Lead into Right Atrium, Percutaneous Approach (ICD-10-PCS; 2022-07-31)
PROC: 02HK3JZ Insertion of Pacemaker Lead into Right Ventricle, Percutaneous Approach (ICD-10-PCS; 2022-07-31)
DX: I49.5 Sick sinus syndrome (principal); I13.0 Hypertensive heart and chronic kidney disease with heart failure and stage 1 through stage 4 chronic kidney disease, or unspecified chronic kidney disease; I50.32 Chronic diastolic (congestive) heart failure; I48.92 Unspecified atrial flutter; S01.01XA Laceration without foreign body of scalp, initial encounter; W19.XXXA Unspecified fall, initial encounter; E87.5 Hyperkalemia; I48.0 Paroxysmal atrial fibrillation; Z79.01 Long term (current) use of anticoagulants; G47.33 Obstructive sleep apnea (adult) (pediatric); Z85.3 Personal history of malignant neoplasm of breast; Z85.038 Personal history of other malignant neoplasm of large intestine; E78.5 Hyperlipidemia, unspecified; Z66 Do not resuscitate; E11.22 Type 2 diabetes mellitus with diabetic chronic kidney disease; N18.30 Chronic kidney disease, stage 3 unspecified; D63.1 Anemia in chronic kidney disease; I44.1 Atrioventricular block, second degree; I95.9 Hypotension, unspecified
CPT/HCPCS: 33208; 36415; 70450; 71045; 71046; 72125; 74177; 80047; 80048; 80053; 80069; 81003; 82272; 82607; 82728; 82746; 82947; 83540; 83550; 83735; 83880; 84484; 85014; 85018; 85025; 90471; 90714; 93005; 93010; 93306; 94644; 94660; 94664; 94762; 96361; 96374; 96375; 97110; 97116; 97161; 97165; 97530; 99152; 99153; 99285-25; A9270; C1785; C1894; C1898; G0378; J0360; J0461; J0610; J0690; J1644; J1750; J1815; J2250; J2916; J3010; J7030; J7040; J7050; J7120; J7799; Q9967

== ENCOUNTER → 2022-08-08 | Outpatient (CLI) | payer MEDICARE ==
[~2022-08-08] MED LIST changes: +Acetaminophen650 M1 PO
[2022-08-08 15:05] LABS: Hematocrit 32.3 % (33.0-51.0); Hemoglobin 9.8 g/dL (11.5-16.0); Mean Corpuscular HGB 29.9 pg (26.0-34.0); Mean Corpuscular HGB Conc 30.3 g/dL (31.5-36.5); Mean Corpuscular Volume 99 fL (80-100); Mean Platelet Volume 10.6 fL (9.1-12.4); Platelet Count 185 K/mm3 (150-400); RDW Coefficient Variation 16.4 % (11.7-14.2); Red Blood Cell Count 3.28 M/mm3 (3.80-5.20); White Blood Cell Count 8.59 K/mm3 (4.00-11.30)
[2022-08-08 18:33] LABS: Albumin, Blood 3.7 g/dL (3.4-5.0); Albumin/Globulin Ratio 0.9 (0.8-1.8); Bilirubin, Total 0.6 mg/dL (0.1-1.0); Bun/Creatinine Ratio 31.9 (12.0-20.0); Calcium, Blood 9.2 mg/dL (8.5-10.1); Creatinine, Blood 1.16 mg/dL (0.40-1.00); Percent Saturation 13.7 % (15.0-50.0); Potassium, Blood 5.3 mmol/L (3.5-5.5); Total Protein, Blood 7.7 g/dL (6.4-8.2)
== END | disposition home or self-care (01) ==
LOC: LAB HH 13:07
PROVIDERS: Internal Medicine
DX: I13.0 Hypertensive heart and chronic kidney disease with heart failure and stage 1 through stage 4 chronic kidney disease, or unspecified chronic kidney disease (principal); E11.22 Type 2 diabetes mellitus with diabetic chronic kidney disease; I50.32 Chronic diastolic (congestive) heart failure; D50.9 Iron deficiency anemia, unspecified; N18.31 Chronic kidney disease, stage 3a; E55.9 Vitamin D deficiency, unspecified
CPT/HCPCS: 80053; 82728; 83540; 83550; 85027

== ENCOUNTER 2022-12-30 11:57 | Day surgery (SDC) | payer MEDICARE ==
[~2022-12-30] VITALS: Ht 154.9 cm; Wt 57.0 kg
[2022-12-30] MEDS ORDERED: LISI5 PO (12:18)
[2022-12-30] MEDS ORDERED: ELIQUIS2.5 MG PO (12:19)
[2022-12-30] MEDS ORDERED: GABA100 PO (12:20)
[2022-12-30] MEDS ORDERED: HUMALOG100 UNIT/1 (12:21)
[2022-12-30] MEDS ORDERED: LOPE2C (12:22)
--- NOTE | 2022-12-30 14:25 | NUR ---
12/30/22 1425 MILANA EDEN 5 ML
[2022-12-30 14:59] VITALS: BP 125/61
== END 2022-12-30 15:02 | disposition home or self-care (01) ==
LOC: ORSCSDS 11:57
PROVIDERS: Surgery
PROC: 0DBL8ZX Excision of Transverse Colon, Via Natural or Artificial Opening Endoscopic, Diagnostic (ICD-10-PCS; principal; 2022-12-30 13:15)
DX: Z12.11 Encounter for screening for malignant neoplasm of colon (principal); Z85.038 Personal history of other malignant neoplasm of large intestine; Z86.010 Personal history of colon polyps; C18.5 Malignant neoplasm of splenic flexure; Z95.0 Presence of cardiac pacemaker; K57.30 Diverticulosis of large intestine without perforation or abscess without bleeding; E11.22 Type 2 diabetes mellitus with diabetic chronic kidney disease; I12.9 Hypertensive chronic kidney disease with stage 1 through stage 4 chronic kidney disease, or unspecified chronic kidney disease; N18.30 Chronic kidney disease, stage 3 unspecified; G47.33 Obstructive sleep apnea (adult) (pediatric); I48.91 Unspecified atrial fibrillation; E78.00 Pure hypercholesterolemia, unspecified; E78.5 Hyperlipidemia, unspecified; Z79.4 Long term (current) use of insulin; Z79.01 Long term (current) use of anticoagulants; Z79.899 Other long term (current) drug therapy; R97.0 Elevated carcinoembryonic antigen [CEA]
CPT/HCPCS: 36415; 82378; 82947; 88305; J1885; J2704; J7120